=== PATIENT | male | born 1945 | race Caucasian/White ===

== ENCOUNTER → 2017-10-01 | Outpatient (CLI) | payer MEDICARE, BC ==
[~2017-10-01] MED LIST: ASPI-496 PO; CLON0.1T PO; FURO80TA3 PO; HYDR-3237 PO; INSU100V8 SQ; MULT-298 PO; NIFE90TA8 PO; QUIN40TA15 PO; SEVE800T8 PO; SIMV40TA3 PO; [UNRECOGNIZED DRUG - CODE] PO
== END | disposition home or self-care (01) ==
LOC: CVU 12:46
PROVIDERS: ATTEND Internal Medicine Cardiovascular Disease
DX: I08.3 Combined rheumatic disorders of mitral, aortic and tricuspid valves (principal); I10 Essential (primary) hypertension; I25.10 Atherosclerotic heart disease of native coronary artery without angina pectoris; E11.9 Type 2 diabetes mellitus without complications; Z95.1 Presence of aortocoronary bypass graft
CPT/HCPCS: 93306